=== PATIENT | male | born 1980 | race Caucasian/White ===

== ENCOUNTER 2020-05-15 00:53 | Emergency (ER) | payer MEDICAID ==
[~2020-05-15] VITALS: Ht 160 cm; Wt 59.0 kg
[2020-05-15 00:57] VITALS: Ht 160 cm; Wt 59.0 kg
[2020-05-15 01:34] LABS: CALCIUM 9.4 mg/dL (8.5-10.1); CARBON DIOXIDE 30.6 mmol/L (21-32); CHLORIDE SERUM 98 mmol/L (98-107); CREATININE SERUM 1.2 mg/dL (0.7-1.3); GFR1 > 60 mL/min; GLUCOSE SERUM 195 mg/dL (74-106); POTASSIUM SERUM 3.3 mmol/L (3.5-5.1); SODIUM SERUM 137 mmol/L (136-145)
[2020-05-15 01:38] LABS: BASOPHIL % 0.5 % (0-2); PLATELET COUNT 266 x10^3mcL (130-400); RED CELL DISTRIBUTION WIDTH 11.8 % (11.5-14.5)
[2020-05-15 01:39] LABS: ALBUMIN 4.4 g/dL (3.4-5.0); ALKALINE PHOSPHATASE 110 U/L (46-116); ALT/SGPT 33 U/L (16-63); AST/SGOT 27 U/L (15-37); BILIRUBIN TOTAL 0.51 mg/dL (0.20-1.00)
[2020-05-15 01:40] LABS: TOTAL PROTEIN, SERUM 8.6 g/dL (6.4-8.2)
[2020-05-15 07:43] VITALS: BP 142/87
== END 2020-05-15 07:43 | disposition home or self-care (01) ==
LOC: ED 00:53
PROVIDERS: Emergency Medicine
DX: E11.649 Type 2 diabetes mellitus with hypoglycemia without coma (principal); R03.0 Elevated blood-pressure reading, without diagnosis of hypertension
CPT/HCPCS: 82962; J7030